=== PATIENT | female | born 1935 | race Caucasian/White ===

== ENCOUNTER 2018-03-25 01:20 | Emergency (ER) | payer MEDICARE ==
[~2018-03-25] VITALS: Ht 180.3 cm; Wt 86.2 kg
[~2018-03-25 01:20] MED LIST: AMLO5TAB13 PO; CARV25TA55 PO; CLOP75TA41 OR; GABA100C9 PO; HYDR50TA15 PO; LISI-646 PO; PROM25TA5 PO; SIMV-8 PO; SOTA80TA PO
[2018-03-25 02:10] LABS: Hematocrit 35.6 % (36.0-46.0); Hemoglobin 11.8 g/dL (12.2-16.2); Mean Corpuscular Hemoglobin 31.3 pg (28.0-32.0); Mean Corpuscular Hgb Conc. 33.3 g/dL (32.0-36.0); Mean Corpuscular Volume 94.2 fL (80.0-100.0); Platelet Count (auto) 209 10^3/uL (140-450); Red Blood Cells 3.78 10^6/uL (4.0-5.20); Red Cell Distribution Width 15.4 % (11.8-14.3)
[2018-03-25 02:18] LABS: Basophils % (manual) 0 (0.0-2.0); Blast Cells 0; Metamyelocytes % 0; Myelocytes % 0; Promyelocytes % 0; Reactive Lymphocytes 0
[2018-03-25 02:26] LABS: INR 0.94 (0.9-1.15); Partial Thromboplastin Time 25.6 sec (23.78-33.04); Prothrombin Time 10.1 sec (9.27-12.13)
[2018-03-25 02:32] LABS: Albumin 3.4 g/dL (3.4-5.0); BUN/Creatinine Ratio 24.8; Calcium 8.3 mg/dL (8.5-10.1); Potassium 4.2 mmol/L (3.5-5.1)
[2018-03-25 02:35] LABS: Bilirubin, Total 0.3 mg/dL (0.2-1.0); Total Protein 6.9 g/dL (6.4-8.2)
[2018-03-25 02:56] LABS: Band Neutrophils % (manual) 1; Eosinophils % (manual) 31 (0-7); Lymphocytes % (manual) 21 (10.0-50.0); Monocytes % (manual) 9 (0-12)
[2018-03-25 04:35] VITALS: BP 118/63
== END 2018-03-25 04:59 | disposition home or self-care (01) ==
LOC: ER 01:23
DX: L76.21 Postprocedural hemorrhage of skin and subcutaneous tissue following a dermatologic procedure (principal); M19.90 Unspecified osteoarthritis, unspecified site; I25.10 Atherosclerotic heart disease of native coronary artery without angina pectoris; E78.5 Hyperlipidemia, unspecified; I13.0 Hypertensive heart and chronic kidney disease with heart failure and stage 1 through stage 4 chronic kidney disease, or unspecified chronic kidney disease; N18.9 Chronic kidney disease, unspecified; I50.9 Heart failure, unspecified; Z95.0 Presence of cardiac pacemaker; Z88.8 Allergy status to other drugs, medicaments and biological substances; Z79.01 Long term (current) use of anticoagulants; Z79.899 Other long term (current) drug therapy; Y83.8 Other surgical procedures as the cause of abnormal reaction of the patient, or of later complication, without mention of misadventure at the time of the procedure; Y92.89 Other specified places as the place of occurrence of the external cause; Y82.8 Other medical devices associated with adverse incidents
CPT/HCPCS: 36415; 80053; 85007; 85027; 85610; 85730